=== PATIENT | female | born 1960 | race Caucasian/White ===

== ENCOUNTER 2025-04-10 06:05 | Day surgery (SDC) | payer OTHER, SELFPAY ==
[2025-04-03 08:37] VITALS: BMI 37.9
[2025-04-10] VITALS (15 sets, daily range): BP systolic 56–138; BP diastolic 46–83; PULSE 67–89; RESP 13–25; TEMP 36.1–36.8; O2SAT 92–100; BMI 35.7
--- NOTE | 2025-04-10 | DI.RAD.S_ITS ---
PROCEDURE: XR HIP W PEL IF DONE RT 2V INDICATIONS: RIGHT TOTAL HIP TECHNIQUE: AP pelvis and lateral view of the hip acquired. COMPARISON: Outside Film, CR, XR HIP 2 VIEWS RIGHT, 10/12/2024, 16:01. [facility], CR, XR PELVIS 1-2V, 04/10/2025, 8:52. FINDINGS: Bones: Patient is status post right hip arthroplasty, with hardware components in expected positions. The hip joint appears congruent. The visualized bony structures appear intact. Soft tissues: Overlying postoperative changes are noted. No suspicious soft tissue densities. IMPRESSION: Expected post-operative appearance of a hip arthroplasty. Dictated by: Xu Sanchez M.D. on 04/10/2025 at 10:22 Approved by: Xu Sanchez M.D. on 04/10/2025 at 10:22
--- NOTE | 2025-04-10 06:00 | DI.RAD.S_ITS ---
PROCEDURE: XR PELVIS 1-2V INDICATIONS: right total hip TECHNIQUE: Intra-operative view of the pelvis and hip acquired. COMPARISON: [facility], CR, XR HIP W PEL RT 2V, 04/10/2025, 10:39. [facility], CR, XR PELVIS WITH LATERAL HIP RIGHT, 03/23/2025, 11:55. FINDINGS: Bones: Intraoperative devices prior to placement of arthroplasty prostheses are in expected positions. No fractures or suspicious bony lesions. Soft tissues: Overlying surgical retractors are present, along with other intraoperative changes. IMPRESSION: Normal intraoperative study. Dictated by: Xu Sanchez M.D. on 04/10/2025 at 10:35 Approved by: Xu Sanchez M.D. on 04/10/2025 at 10:36
[2025-04-10] MEDS: VANCOMYCIN 1,000 MG in SODIUM CHLORIDE 0.9% 250 ML 250 MG IV (06:57)
[2025-04-10] MEDS: LACTATED RINGERS 1,000 ML 42 ML IV ×2 (06:57→09:56)
[2025-04-10] MEDS: CELECOXIB 200 MG CAPSULE PO (07:01)
[2025-04-10] MEDS: ACETAMINOPHEN 325 MG TABLET 975 MG PO (07:01)
--- NOTE | 2025-04-10 07:31 | P.OP_ITS ---
Operative Date/Time/Diagnoses Date of procedure: 04/10/25 Time of procedure: 07:31 Pre-op diagnosis: right hip OA Post-op diagnosis: same Procedure & Clinicians Procedure: Right total hip arthroplasty posterior approach Same procedure(s) as scheduled: Yes Indications: The patient has had progressively worsening right hip pain with radiographic changes consistent with arthritis. Non-operative management has failed and the patient has requested total hip replacement. The risks, benefits and alternatives to surgery were discussed with the patient prior to proceeding. Risks discussed included, but were not limited to, failure to relieve pain, leg length discrepancy, dislocation, stiffness, infection, nerve damage, deep venous thrombosis, pulmonary embolism, stroke, coma, heart attack, permanent paralysis and , as well as the potential need for eventual revision of the prosthetic. Surgeon: Brigitte Gonzalez [employer] Workers: Pola Sadler Anesthesia Type: General and Spinal Operative Notes Findings: Right hip OA, adequate bone, adequate stability Closure Type: primary Specimen(s): none sent Prosthetic devices, grafts, tissues, transplants, or devices: Gonzalez and nephew R3 46, neutral poly liner, two 6.5 mm screws, anthology A size 4, 32 by -3 oxinium Applied: none Estimated Blood Loss (mL): 250 Blood products transfused: none Procedure in detail: The patient was seen in the pre-operative area, where the patient identified the right hip as the operative site and this was marked with my initials. The patient received pre-operative antibiotics and was taken to the operating room and placed on the operative table in the left lateral decubitus position after satisfactory anesthesia. A motion and time study teacher out was performed. The right leg was prepared from the ankle to the iliac crest with ChloroPrep in the usual fashion and draped through sterile drapes. The hip was approached through an approximately 24 cm incision centered over the greater trochanter and curving gently posteriorly as it went proximally. This was carried sharply to the fascia brenda, which was divided and retracted with a self retaining retractor. The trochanteric bursa was excised with care being taken to avoid the sciatic nerve, which was identified and protected throughout the case. The short external rotators were incised and the capsulomuscular flap was raised and tagged for later repair. The hip was dislocated, and a femoral neck osteotomy performed approximately 15 mm above the lesser trochanter. Retractors were placed around the femur. The canal was opened with a box cutting osteotome, followed by a T handled reamer and a lateralizing reamer. The chili pepper broach was then used, followed by sequential broaching until there was good stability of the broach in the femur. Retractors were placed to expose the acetabulum. The labrum and central soft tissues were removed. Reaming was performed initially going up in 2 mm increments, then 1 mm increments until good bite was obtained with an odd sized reamer. The cup 1 mm larger than the last reamer was then inserted using the appropriate anteversion guides. It was further stabilized with two screws. A trial neutral liner was placed. The broach was placed in the canal. A trial head and neck were then placed and the hip relocated and checked for leg length and stability. An intraoperative film confirmed the component position and no evidence of fracture. The patient was stable in the position of sleep, of squatting, and could be put through a range of motion with 45 degrees internal rotation without dislocation. At 90 degrees flexion, internal rotation to 70 degrees was possible before dislocation. This was felt to be satisfactory and the appropriate components were opened, and the trials were removed. The acetabular liner was impacted into position. The final stem was then impacted into the prepared femoral canal. A brief Betadine soak was performed while trialing with head options. The hip was meticulously irrigated with normal saline. Finally the femoral head was impacted onto the stem. The acetabulum was cleared of all material and the hip relocated one final time. The capsulomuscular flap was then repaired to the greater trochanter though an awl hole using the tag sutures. The short external rotators were repaired with a nonabsorbable suture. The fascia brenda was closed with Vicryl. The subcutaneous layer was closed with barbed sutures and skin pan. A lisa dressing was applied and the patient was taken to recovery having tolerated the procedure well. A PA was used during the procedure and was essential for intraoperative retraction and safe implantation of the components. Complications: none Post-operative Condition: stable Disposition: Acute Care Plan for aftercare: The patient will be maintained on a standard total hip replacement protocol with weight bearing as tolerated and posterior hip precautions. The patient will receive Aspirin and sequential compression devices for DVT prophylaxis. The patient will be discharged home when safe for the home environment.
--- NOTE | 2025-04-10 07:31 | PM.PREOP ---
Pre-operative Note Interval Note History & Physical reviewed/Exam performed by Physician: Yes Changes to H&P: No
[2025-04-10] MEDS: CEFAZOLIN 2 GM/100 ML PREMIX 100 ML IV ×3 (08:05→23:27)
[2025-04-10] MEDS: TRANEXAMIC ACID 1,000 MG VIAL 1000 MG INJ ×2 (08:10→09:56)
--- NOTE | 2025-04-10 08:30 | SUR.OPER ---
Lateral on padded OR bed. Gel axillary roll. Arms secured on padded armboard with pillow supporting top arm. Padded hip positioner braces x4 - anterior and posterior chest and pelvis. Additional gel pad used anterior pelvis. Gel pad under bottom leg from knee to foot and secured with tape over sheet. Dr. Gonzalez and PA in room at time of positioning to assist and approve final position. All pressure points padded and protected.
[2025-04-10] MEDS: BUPIVACAINE 0.25% W/ EPI 30 ML VIAL 60 ML INJ (08:45)
[2025-04-10] MEDS: BUPIVACAINE LIPOSOME 266 MG/20 ML VIAL INJ (08:46)
[2025-04-10] MEDS: EPINEPHrine 1 MG/ML IRR (08:50)
[2025-04-10] MEDS: OXYCODONE IR 5 MG TABLET PO ×3 (11:01→19:14)
[2025-04-10] MEDS: hydrOXYzine 50 MG/ML INJ IM (11:18)
[2025-04-10] MEDS: LACTATED RINGERS 1,000 ML 1000 ML IV (12:50)
--- NOTE | 2025-04-10 12:51 | PC.NURSE ---
Low BP noted, patient resting comfortably in bed. Denies lightheadedness but is sleepy. Awakens appropriately. Dr. Gonzalez notified and 1L LR bolus ordered. Continue to monitor.
[2025-04-10] MEDS: ACETAMINOPHEN 325 MG TABLET 650 MG PO ×3 (14:20→23:37)
[2025-04-10] MEDS: LACTATED RINGERS 1,000 ML 100 ML IV (14:21)
--- NOTE | 2025-04-10 16:05 | PT.IIE ---
Current Diagnoses Unilateral primary osteoarthritis, right hip (04/10/25) Surgery Performed Operation Date: 04/10/25 07:45 Actual Procedures p Total Hip Arthroplasty(Right) - Brigitte Gonzalez MD Surgical History (Last Updated 04/03/25 @ 09:12 by Blanka López, RN) History of delivery (1980) History of surgery (~2005) Medical History (Last Updated 04/03/25 @ 09:12 by Blanka López RN) Fatty liver Heart murmur Hepatitis C (~2004) HTN (hypertension) Hypothyroidism Osteoarthritis Pre-diabetes Physical Therapy Inpatient Evaluation/Re-Eval M1 PT/OT-IP Prior Functional Status Start: 04/10/25 18:00 Freq: NEEDED Status: Active Protocol: Document 04/10/25 16:05 AB (Rec: 04/10/25 18:10 AB [id number]) Medical Review Prior Functional Status Medical History Yes Reviewed Communication able to make needs known Mobility and Gait pt stated that she was indpeendent with all mobilities and ambulation without AD but occasionally uses a SPC depending on hip pain Social History Household Members none Living Arrangements House Number of Floors ( One Floor Floors) Number of Stairs To 4 steps without rails to enter the house Enter/Railing? Home Environment Standard Height Toilet,Tub/Shower Home Equipment Front Wheel Walker,Straight Cane,Raised Toilet Seat w/ Armrests,Grab Bars In Shower Additional Social pt's significant other can stay and assist pt if needed History Comment ; also has her son and sister available to assist her M2 PT-IP Current Condition Start: 04/10/25 18:00 Freq: NEEDED Status: Active Protocol: Document 04/10/25 16:05 AB (Rec: 04/10/25 18:10 AB [id number]) Physical Therapy Current Condition Current Condition Evaluation Date 04/10/25 Treatment Diagnosis s/p R PEDRO LUIS posterior; difficulty in walking Onset Date 04/10/25 M3 PT-IP Subjective Start: 04/10/25 18:00 Freq: NEEDED Status: Active Protocol: Document 04/10/25 16:05 AB (Rec: 04/10/25 18:10 AB [id number]) Therapy Pain Assessment Pain Present Pain Present Denied Pain M4 PT-IP Mobility and Gait Start: 04/10/25 18:00 Freq: NEEDED Status: Active Protocol: Document 04/10/25 16:05 AB (Rec: 04/10/25 18:10 AB [id number]) PT-Bed Mobility Assessment Supine to Sit Supine to Sit Moderate Assistance,1 Person Assistance PT-Transfer Assessment Sit to and From Stand Sit to and from Minimal Assistance,Moderate Assistance,1 Person Stand Assistance,Use of Upper Extremities Equipment Transfer Assistive Gait Belt,Front Wheeled Walker Device Orthotic/Prosthetic No Devices or Brace: Transfers Transfer Destination Bedside Commode Transfer Technique ambulated Transfer Ability Level of Assist Minimal Assistance,Moderate Assistance,1 Person Assistance,Use of Upper Extremities Comments Mobility Comments pt in bed and agreeable to do PT. obtained PLOF and home set up. post-op folder provided to pt. Pt educated on R hip posterior precautions. BP supine: 113/68. O2 sat: 94% OK: 90 completed supine to sit mod A and max cues. needed assistance to move RLE to EOB. able to sit on EOB SBA. sitting BP: 138/76. sit to stand mod A and cues and ambulated in room ~ 15ft using FWW min to mod A and cues. cued for safety and R quads activation. pt sat on bedside commode. sit to stand from bedside commode min A and cues for hip precautions and was able to step transfer to chair using FWW min A and cues. positioned pt on the chair. call light and table placed within reach. set up caregiver training at 9 am tomorrow. Gait Assessment Gait Gait Assistance Minimum Assistance,Moderate Assistance Required: Distance (Feet) 15 Able to Maintain Yes Weight Bearing Status During Gait Assistive Devices Assistive Device Gait Belt,Front Wheeled Walker Orthotic/Prosthetic No Devices or Brace: Gait Deviations General Gait Pattern Decreased Stride Length,Decreased Feet Clearance Factors Limiting Gait Function Factors Limiting Decreased Activity Tolerance,Decreased Sensation, Gait Function Decreased Strength,Limited Range of Motion,Poor Balance ,Poor Safety Awareness PT-Balance Assessment Sitting Balance and Reactions Static Sitting Normal Balance Ability Dynamic Sitting Good Balance Ability Standing Balance and Reactions Static Standing Fair Balance Ability Dynamic Standing Fair Balance Ability Device Used FWW M5 PT-IP Objective Assessments Start: 04/10/25 18:00 Freq: NEEDED Status: Active Protocol: Document 04/10/25 16:05 AB (Rec: 04/10/25 18:10 AB [id number]) Orientation Orientation/Cognition Level of Alertness Alert Orientation Name,Place,Situation Language Function No Deficits Noted Ability Safety Awareness Decreased Safety Awareness Memory Description Short Term Impaired Strength Lower Extremity Strength Assessment Right Impaired Hip 3-/5 Knee 4-/5 Coordination Assessment Gross Coordination Gross Coordination WNL Sensation Assessment Sensation Sensation Numbness Description Comments Sensation Comments numbness of buttocks Muscle Tone Muscle Tone WNL Yes M6 PT-IP Treatment Start: 04/10/25 18:00 Freq: NEEDED Status: Active Protocol: Document 04/10/25 16:05 AB (Rec: 04/10/25 18:10 [id number]) Physical Therapy Treatment Exercises Exercises Heel Slides Education Education Provided Precautions,Weight Bearing Status,Post-Op Packet,Safety M7 PT-IP Assessment and Plan Start: 04/10/25 18:00 Freq: NEEDED Status: Active Protocol: Document 04/10/25 16:05 AB (Rec: 04/10/25 18:10 AB [id number]) PT Summary Assessment and Plan Potential Rehabilitation Fair Potential Status of Condition Evolving at Evaluation Summary Impairments Pain,ROM,Strength,Balance,Coordination,Sensation,Tone, Cognition,Bed Mobility,Transfers,Gait,Activity Tolerance Assessment Summary pt is a 64 y/o F s/p R PEDRO LUIS posterior approach POD 0. pt has R hip posterior precautions and is WBAT. pt requiring mod A for supine to sit, min to mod A for transfers and ambulation using FWW. Caregiver training set up for tomorrow at 9 am. pt plans to go home and has outpt PT set up. will continue to assess progress. Goals Bed Mobility Goal Independent Transfer Goal Independent,Standby Assistance,Front Wheeled Walker Gait Goal Front Wheel Walker Gait Distance 200 Other Goals up/down 4 steps usign SPC + [employer] CGA Days to Meet Goals 5 Frequency of Treatment Frequency Of Twice a Day Treatment Treatment Plan Physical Therapy Bed Mobility Training,Transfer Training,Gait Training, Treatment Plan Therapeutic Exercise,Balance Retraining,Post Op Education,Discharge Planning,Hot or Cold Pack, Neuromuscular Re-ed,Coordination Retraining,Manual Therapy Precautions Posterior Hip No Hip Flexion > 90 degrees,No Hip Internal Rotation,No Precautions Hip Adduction Weight Bearing Status Weight Bearing Weight Bear as Tolerated Status Allowed Weight RLE WBAT Bearing Amount ( enter % or #) (%) Recommendations To Nursing Amount of Assist 1 Person Assist Needed Discharge Recommendations PT Discharge Home with Assistance,Outpatient PT Recommendations Transportation Needs Private Vehicle,Wheelchair/Cabulance at Discharge - PT assist 1
[2025-04-10] MEDS: ASPIRIN EC 81 MG TABLET PO (20:14)
[2025-04-10] MEDS: DOCUSATE 100 MG CAPSULE PO (20:14)
[2025-04-10] MEDS: OXYCODONE IR 10 MG TABLET PO (23:24)
[2025-04-11] MEDS: OXYCODONE IR 10 MG TABLET PO ×2 (04:33→08:26)
[2025-04-11 05:53] LABS: Hematocrit 36.7 % (36-46); Hemoglobin 12.8 g/dL (12.0-16.0)
[2025-04-11] MEDS: LEVOTHYROXINE 112 MCG TABLET PO (05:56)
[2025-04-11] MEDS: ACETAMINOPHEN 325 MG TABLET 650 MG PO (05:56)
--- NOTE | 2025-04-11 07:59 | P.DS_ITS ---
History of Present Illness History of Present Illness Date Patient Seen: 04/11/25 Time Patient Seen: 07:45 Chief complaint: OPB Narrative: The patient has had progressively worsening right hip pain with radiographic changes consistent with arthritis. Non-operative management has failed and the patient has requested total hip replacement. The risks, benefits and alternatives to surgery were discussed with the patient prior to proceeding. Risks discussed included, but were not limited to, failure to relieve pain, leg length discrepancy, dislocation, stiffness, infection, nerve damage, deep venous thrombosis, pulmonary embolism, stroke, coma, heart attack, permanent paralysis and , as well as the potential need for eventual revision of the prosthetic. Discharge Providers Provider Discharge Date: 04/11/25 Consults: 04/10/25 06:00 Consult to Anesthesiology Routine Comment: Consulting Provider: Anesthesiologist Reason for consultation: Regional block for post operative pain control Has provider been notified: No 04/10/25 12:44 Consult to Discharge Planning Routine Comment: Consult to Occupational Therapy Evaluate & Treat Comment: Physician Instructions: Evaluate and treat Consult to Physical Therapy Evaluate & Treat Comment: Physician Instructions: post op PEDRO LUIS protocol Discharge provider: Poal Sadler PA-C Summary Hospital Course Discharge Diagnosis: right hip OA Hospital Course: Procedure: Right total hip arthroplasty posterior approach Same procedure(s) as scheduled: Yes Surgeon: Brigitte Gonzalez Sprinkler Helper: Pola Sadler Anesthesia Type: General and Spinal Operative Notes Findings: Right hip OA, adequate bone, adequate stability Closure Type: primary Specimen(s): none sent Prosthetic devices, grafts, tissues, transplants, or devices: Gonzalez and nephew R3 46, neutral poly liner, two 6.5 mm screws, anthology A size 4, 32 by -3 oxinium Applied: none Estimated Blood Loss (mL): 250 Status at Discharge Cognitive/behavioral status at discharge: oriented Functional status at discharge: uses cane/walker Overall status at discharge: patient is back to baseline Time Spent with Patient Time spent: Less than 30 minutes Exam Vital Signs (past 8 hours): Oxygen Delivery Method Room Air Oxygen Flow Rate 0 Narrative Exam Narrative: Patient's pain is controlled with oral medication. ?Pain is localized to surgical site. ?Patient declines any new numbness or tingling at the surgical extremity. ?Patient denies any shortness of breath, dizziness, light-headedness, nausea, vomiting, fever or chills. 5/5 strength in hip flexors, quadriceps, hamstrings, DF, PF, EHL bilaterally. Sensation to light touch intact throughout BLE. Calves soft, compressible, nontender. Dressing placed intraoperatively CDI. Resp Effort & Inspection: normal respiratory effort and able to speak in complete sentences Objective Labs 04/11/25 05:21 Labs: Laboratory Results - last 24 hr 04/11/25 05:21 Hgb 12.8 Hct 36.7 PFSH Medical History (Updated 04/03/25 @ 09:12 by Blanka López RN) Osteoarthritis Pre-diabetes Hypothyroidism Fatty liver Hepatitis C (~2004) Heart murmur HTN (hypertension) Surgical History (Updated 04/03/25 @ 09:12 by Blanka López RN) History of surgery (~2005) History of delivery (1980) Social History household members: none Smoking Status: Former smoker alcohol intake: former Discharge Assessment & Plan Assessment and Plan Assessment: Status post Right total hip arthroplasty posterior approach Plan of Treatment: Discharge to home. ? Posterior Hip Pre-cautions. Ambulate and weight bear as tolerated with assistive devices. ? Aspirin 81 mg twice a day for 6 weeks for DVT prevention. ? Baseline pain relief with acetaminophen 500mg every 4 hours as needed and ibuprofen 400 mg every 4 hours as needed. ?Patient has been prescribed oxycodone 5 mg every 4 ?hours as needed for breakthrough pain. ? Initiate physical therapy in the next 5-10 days. ? Keep dressing clean and dry. Keep dressing on until first office visit. If dressing becomes dirty or disrupted, replace with appropriate sized dressing. Follow up in clinic in 2 weeks for wound check. Contact clinic if there are any questions or concerns. Discharge Plan Discharge Plan Patient Disposition: Home Discharge orders & Medications Discharge Orders: Discharge (Order); Ordered 04/11/25 Ordered By: oPla Sadler Prescriptions: New aspirin 81 mg Tablet,Delayed Release (Dr/Ec) 81 mg PO BID Qty: 90 0RF Continued gabapentin 300 mg capsule 300 mg PO DAILY levothyroxine 112 mcg tablet 112 mcg PO QAM olmesartan 20 mg tablet 20 mg PO DAILY Diet/Activity/Treatments Diet: Diet as Tolerated Activity: Ambulate multiple times a day. Use a cane or walker as needed. Full weight on leg. Cold/Heat Therapy: Use ice multiple times a day. Skin/Wound/Dressing Care Skin care: Leave dressing on. Okay to shower Report to your healthcare provider any signs of infection, such as:: chills, fever, night sweats, unusual drainage and unusual redness Dressing: May shower. Leave dressing in place until follow up in office. No bathing or otherwise soaking incision. Call the office if the dressing becomes saturated inside. Visit Report/Discharge Packet Instructions: DI for Hip Replacement Stand Alone Forms: Patient Portal/API, Surgery Discharge Print Language: Frisian Discharge Data Attending Provider: Brigitte Gonzalez
[2025-04-11] MEDS: ASPIRIN EC 81 MG TABLET PO (08:27)
[2025-04-11] MEDS: DOCUSATE 100 MG CAPSULE PO (08:27)
[2025-04-11] MEDS: GABAPENTIN 300 MG CAPSULE PO (08:27)
--- NOTE | 2025-04-11 09:00 | PT.IPTN ---
Current Diagnoses Unilateral primary osteoarthritis, right hip (04/10/25) Surgery Performed Operation Date: 04/10/25 07:45 Actual Procedures p Total Hip Arthroplasty(Right) - Brigitte Gonzalez MD Physical Therapy Treatment Note M2 PT-IP Current Condition Start: 04/10/25 18:00 Freq: NEEDED Status: Discharge Protocol: Document 04/10/25 16:05 AB (Rec: 04/10/25 18:10 AB [id number]) Physical Therapy Current Condition Current Condition Evaluation Date 04/10/25 Treatment Diagnosis s/p R PEDRO LUIS posterior; difficulty in walking Onset Date 04/10/25 M3 PT-IP Subjective Start: 04/10/25 18:00 Freq: NEEDED Status: Discharge Protocol: Document 04/11/25 09:00 AB (Rec: 04/11/25 13:36 AB [id number]) Therapy Pain Assessment Pain When Pain Assessed At Rest Pain Present Pain Present Pain Reported Location right hip Intensity 6 Scale Used Numeric (0 - 10) Pain Management Apply Cold,Distraction,Modification of Treatment,Re- Techniques positioning,Timing of Activity with Medications M4 PT-IP Mobility and Gait Start: 04/10/25 18:00 Freq: NEEDED Status: Discharge Protocol: Document 04/11/25 09:00 AB (Rec: 04/11/25 13:36 AB [id number]) PT-Bed Mobility Assessment Supine to Sit Supine to Sit Maximum Assistance,1 Person Assistance Sit to Supine Sit to Supine Maximum Assistance,1 Person Assistance PT-Transfer Assessment Sit to and From Stand Sit to and from Minimal Assistance,Moderate Assistance,1 Person Stand Assistance,Use of Upper Extremities Equipment Transfer Assistive Gait Belt,Front Wheeled Walker Device Orthotic/Prosthetic No Devices or Brace: Transfers Transfer Destination Bed,Chair Transfer Technique ambulated Transfer Ability Level of Assist Contact Guard Assistance,1 Person Assistance,Use of Upper Extremities Comments Mobility Comments pt sitting on the chair and significant other in room. reviewed hip precautions and pt recalled 2/3. educated pt and spouse regarding posterior hip precautions. caregiver training conducted. educated SO on how to use safety belt and how to assist pt. SO was able to put safety belt on pt. sit to stand min to mod A and cues for techniques, pt ambulated in room ~ 25 ft using FWW CGA. sat on EOB. completed sit<>supine max A with SO assisting pt. sit<>stand from EOB x 3 and cues for techniques mod A. stair climbing training: educated pt and SO on how to do stairs using SPC + EX CHEF. pt completed up/down platform step x 3 sets using SPC and SO providing EX CHEF max A and cues. pt ambulated back to the chair. positioned pt on the chair. call light and table placed within reach. Gait Assessment Gait Gait Assistance Contact Guard Assist Required: Distance (Feet) 35 Able to Maintain Yes Weight Bearing Status During Gait Assistive Devices Assistive Device Gait Belt,Front Wheeled Walker Orthotic/Prosthetic No Devices or Brace: Gait Deviations General Gait Pattern Antalgic,Decreased Stride Length,Decreased Feet Clearance,Step-to Gait Factors Limiting Gait Function Factors Limiting Decreased Activity Tolerance,Decreased Strength,Limited Gait Function Range of Motion,Pain,Poor Balance,Poor Safety Awareness M5 PT-IP Objective Assessments Start: 04/10/25 18:00 Freq: NEEDED Status: Discharge Protocol: Document 04/10/25 16:05 AB (Rec: 04/10/25 18:10 AB [id number]) Orientation Orientation/Cognition Level of Alertness Alert Orientation Name,Place,Situation Language Function No Deficits Noted Ability Safety Awareness Decreased Safety Awareness Memory Description Short Term Impaired Strength Lower Extremity Strength Assessment Right Impaired Hip 3-/5 Knee 4-/5 Coordination Assessment Gross Coordination Gross Coordination WNL Sensation Assessment Sensation Sensation Numbness Description Comments Sensation Comments numbness of buttocks Muscle Tone Muscle Tone WNL Yes M6 PT-IP Treatment Start: 04/10/25 18:00 Freq: NEEDED Status: Discharge Protocol: Document 04/11/25 09:00 AB (Rec: 04/11/25 13:36 [id number]) Physical Therapy Treatment Education Education Provided Precautions,Safety M7 PT-IP Assessment and Plan Start: 04/10/25 18:00 Freq: NEEDED Status: Discharge Protocol: Document 04/11/25 09:00 AB (Rec: 04/11/25 13:36 AB [id number]) PT Summary Assessment and Plan Potential Rehabilitation Good Potential Summary Impairments Pain,ROM,Strength,Balance,Coordination,Sensation,Tone, Cognition,Bed Mobility,Transfers,Gait,Activity Tolerance Progress Towards Slow Progress due to Pain Goals Assessment Summary pt c/o increase pain today but able to mobilize with assistance. caregiver training conducted and pt's significant other will assist her at home. pt has outpt PT set up. Goals Bed Mobility Goal Independent Transfer Goal Independent,Standby Assistance,Front Wheeled Walker Gait Goal Front Wheel Walker Gait Distance 200 Other Goals up/down 4 steps usign SPC + EX CHEF CGA Days to Meet Goals 5 Frequency of Treatment Frequency Of Twice a Day Treatment Treatment Plan Physical Therapy Bed Mobility Training,Transfer Training,Gait Training, Treatment Plan Therapeutic Exercise,Balance Retraining,Post Op Education,Discharge Planning,Hot or Cold Pack, Neuromuscular Re-ed,Coordination Retraining,Manual Therapy Precautions Posterior Hip No Hip Flexion > 90 degrees,No Hip Internal Rotation,No Precautions Hip Adduction Weight Bearing Status Weight Bearing Weight Bear as Tolerated Status Allowed Weight RLE WBAT Bearing Amount ( enter % or #) (%) Recommendations To Nursing Amount of Assist 1 Person Assist Needed Discharge Recommendations PT Discharge Home with Assistance,Outpatient PT Recommendations Transportation Needs Private Vehicle,Wheelchair/Cabulance at Discharge - PT assist 1
--- NOTE | 2025-04-11 10:38 | OT.IP.EVAL ---
Current Diagnoses Unilateral primary osteoarthritis, right hip (04/10/25) Surgery Performed Operation Date: 04/10/25 07:45 Actual Procedures p Total Hip Arthroplasty(Right) - Brigitte Gonzalez MD Past Medical History (Last Updated 04/03/25 @ 09:12 by Blanka López, RN) Fatty liver Heart murmur Hepatitis C (~2004) HTN (hypertension) Hypothyroidism Osteoarthritis Pre-diabetes Surgical History (Last Updated 04/03/25 @ 09:12 by Blanka López RN) History of delivery (1980) History of surgery (~2005) Occupational Therapy Inpatient Evaluation/Re-Eval M1 PT/OT-IP Prior Functional Status Start: 04/10/25 18:00 Freq: NEEDED Status: Discharge Protocol: Document 04/10/25 16:05 AB (Rec: 04/10/25 18:10 AB [id number]) Medical Review Prior Functional Status Medical History Yes Reviewed Communication able to make needs known Mobility and Gait pt stated that she was independent with all mobilities and ambulation without AD but occasionally uses a SPC depending on hip pain Social History Household Members none Living Arrangements House Number of Floors ( One Floor Floors) Number of Stairs To 4 steps without rails to enter the house Enter/Railing? Home Environment Standard Height Toilet,Tub/Shower Home Equipment Front Wheel Walker,Straight Cane,Raised Toilet Seat w/ Armrests,Grab Bars In Shower Additional Social pt's significant other can stay and assist pt if needed History Comment ; also has her son and sister available to assist her M1 PT/OT-IP Prior Functional Status Start: 04/11/25 11:56 Freq: NEEDED Status: Active Protocol: Document 04/11/25 11:56 [facility] (Rec: 04/11/25 12:07 [facility] Desktop) Medical Review Prior Functional Status Medical History Yes Reviewed Communication able to make needs known Mobility and Gait pt stated that she was independent with all mobilities and ambulation without AD but occasionally uses a SPC depending on hip pain Activities of Daily Pt needing assist with LB dressing from her . Living and IADL's Social History Household Members none Living Arrangements House Number of Floors ( One Floor Floors) Number of Stairs To 4 steps with no rails. Enter/Railing? Home Equipment Four Wheel Walker,Straight Cane,Raised Toilet Seat w/ Armrests,Long Handled Shoe Horn,Specifications Writer,Sock Aid,Grab Bars In Shower M2 OT-IP Current Condition Start: 04/11/25 11:56 Freq: Status: Active Protocol: Document 04/11/25 11:56 [facility] (Rec: 04/11/25 12:07 [facility] Desktop) Occupational Therapy Current Condition Current Condition Evaluation Date 04/11/25 Treatment Diagnosis S/P R PEDRO LUIS posterior Diagnosis Onset Date 04/10/25 Post Operative Precautions Posterior Hip No Hip Flexion > 90 degrees,No Hip Internal Rotation,No Precautions Hip Adduction Other Precautions able to clarify with DR. Gonzalez on her posterior precautions states not bend hip more than [address] Gonzalez states not bend more than 90 degrees and 70 degrees if rotating hip inwards and leg outwards. Weight Bearing Status Weight Bearing Weight Bear as Tolerated Status M3 OT- IP Subjective and Pain Start: 04/11/25 11:56 Freq: Status: Active Protocol: Document 04/11/25 11:56 [facility] (Rec: 04/11/25 12:07 [facility] Desktop) OT- Subjective Occupational Therapy Visit Type Type Initial Evaluation Visit Start Time 10:13 Visit Stop Time 10:38 Occupational Therapy Visit Comments Patient Comments Pt agreed to get dressed and present for training. Patient/Caregiver To go home. Goals OT Pain Assessment Pain When Pain Assessed During Mobility Pain Present Pain Present Pain Reported Location right hip Intensity 6 Scale Used Numeric (0 - 10) M4 OT- IP ADL's Start: 04/11/25 11:56 Freq: Status: Active Protocol: Document 04/11/25 11:56 [facility] (Rec: 04/11/25 12:07 [facility] Desktop) OT LOC-Ohuy-Xxargpt General Evaluation Self-Feeding Ability Independent OT ADL-Grooming Comments OT Grooming Comments Not observed. OT ADL-Oral Care Comments Oral Care Comments Not observed. OT ADL-Dressing General Eval Upper Body Dressing Standby Assistance Ability Lower Body Dressing Maximum Assistance Ability Areas Needing Socks,Shoes Assistance Comments OT Dressing Comments Able to practice use of it investment/portfolio manager and sock aid. Educated to dress the RLE first and take out last. OT ADL-Toileting Comments OT Toileting Suggested best to stand to wipe and have a BSC. Use of Comments wipe and pull ups. Also to have her assist as needed. OT ADL-Bathing Comments OT Bathing Comments Pt will benefit from a tub bench. Spoke of care of dressing for showering needs. M5 OT- IP IADL's Start: 04/11/25 11:56 Freq: Status: Active Protocol: Document 04/11/25 11:56 [facility] (Rec: 04/11/25 12:07 [facility] Desktop) OT-Instrumental Activities of Daily Living Home Safety Awareness Awareness of Need Good Awareness for Assistance at Home Ability to Problem Able to Problem Solve Solve Emergency Situations Medication Management Medication to assist as needed. Management Comments Meal Preparation Meal Preparation Caregiver Provides Assist Agricultural Appraiser Agricultural Appraiser Caregiver Provides Assist M6 OT- IP Functional Cognition Start: 04/11/25 11:56 Freq: Status: Active Protocol: Document 04/11/25 11:56 [facility] (Rec: 04/11/25 12:07 [facility] Desktop) Cognitive Factors Limiting Selfcare Function Cognitive Ability Level of Alertness Alert Patient Orientation Name,Age,Birthday,Month,Date,Year,Day of Week,Place, Situation Attention Span Capable of Focused Attention,Capable of Sustained Ability Attention Ability to Follow Able to Follow One Step Commands Commands Cognitive Comments Cognitive Assessment Pt able to follow her precautions for ADL and mobility Comments needs with vc for reminders. Pt's S.O able to safely assist pt for all ADL and mobility needs. M7 OT- IP Mobility and Balance Start: 04/11/25 11:56 Freq: Status: Active Protocol: Document 04/11/25 11:56 [facility] (Rec: 04/11/25 12:07 [facility] Desktop) OT-Transfer Assessment Sit to and From Stand Sit to and from Contact Guard Assistance Stand Comments Mobility Comments CGA to stand to the FWW. Able to go over pillow placement for her hip precautions. OT- Balance Assessment Sitting Balance and Reactions Static Sitting Good Balance Ability Dynamic Sitting Good Balance Ability Standing Balance and Reactions Static Standing Fair Balance Ability M8 OT- IP Objective Assessments Start: 04/11/25 11:56 Freq: Status: Active Protocol: Document 04/11/25 11:56 [facility] (Rec: 04/11/25 12:07 [facility] Desktop) OT Gross Range of Motion Upper Extremity Range of Motion Assessment Within Functional Limits OT Strength Comments Strength Comments WFL for needs. M9 OT- IP Assessment and Plan Start: 04/11/25 11:56 Freq: Status: Active Protocol: Document 04/11/25 11:56 [facility] (Rec: 04/11/25 12:07 [facility] Desktop) OT Summary Assessment and Plan Potential Rehabilitation Excellent Potential Analytic Complexity Low at Evaluation Summary OT Impairments Pain,Balance,Functional Mobility,Dressing,Toileting, Bathing,Toilet Transfers,Shower Transfers,Activity Tolerance Progress Towards Progressing Toward Goals Goals Assessment Summary Pt low complexity and main barriers are pain, steps and needing reminders to her hip precautions. Pt will benefit from 24/7 assist at home and outpt PT. Goals Self-Feeding Goal Independent Grooming Goal Independent Dressing Goal Minimal Assistance Toileting Goal Standby Assistance Bathing Goal Minimal Assistance Toilet Transfer Goal Independent Shower Transfer Goal Contact Guard Assistance Days to Meet Goals 5 Frequency of Treatment Other frequency 5x/week Treatment Plan OT Treatment Plan ADL Training,Functional Mobility,Patient/Family Education,Discharge Planning Discharge Recommendations OT Discharge Home with 24/7 Assist Available,Outpatient PT Recommendations Home Equipment Needs BSC, tub bench, long handled sponge Transportation Needs Private Vehicle at Discharge
[2025-04-11] MEDS: IBUPROFEN 400 MG TABLET PO (10:47)
--- NOTE | 2025-04-11 11:33 | PC.NURSE ---
Patient is A&OX4. She is able to get up to chair and to Bathroom using FWW x1 assist. She reports pain elevated at 6-7/10 but controlled well with po PRN oxycodone 10mg this a.m. she is cleared by PT and OT and completes caregiver training with PT at 0900. MD Gonzalez at bedside this a.m. evaluating patient and she is cleared medically for discharge home today with spouse. Spouse and son at bedside supportive and helpful. MARIA LUISA dressing to R hip C/D/I without drainage. BP med held this a.m. as BP low prior day and soft BP's this a.m. Continuous monitoring. At 11 a.m. she reviews discharge paper work, IV dc'd and she is escorted to private care with her son today. She acknowledges activity limitations, MARIA LUISA dressing &site care, meds as well as follow up post op appointment and s/sx of infection. She is escorted via w/ch by RN with all belongs to private vehicle with her and son.
--- NOTE | 2025-04-11 13:27 | CM.DANOTE ---
B DCP Assessment Note pt is a 64yo F POD1 right total hip with Dr. Gonzalez PCP Miracle Oliveira Payer Ren and self pay COMMERCIAL LITIGATION ATTORNEY reviewed EMR per chart review PT/OT rec home with assistance and OP therapies. per chart review, pt lives in [place] with spouse and local son/sister as well. has a FWW/cane/grab bars in home. cleared to dc for home. COMMERCIAL LITIGATION ATTORNEY attempted to meet with pt in room, already left with spouse and son. per RN, no obvious CM needs P: dc home with OP f/u and family support. CM team will continue to follow as needed GINNY Garcia Discharge Planning/Care Management CM Discharge Assessment Start: 04/10/25 06:35 Freq: Status: Discharge Protocol: Document 04/11/25 13:26 SL (Rec: 04/11/25 13:27 [id number]) Discharge Planning Assessment Assigned Discharge GINNY Wright Arc Cutter Plasma Arc DPOA/Assigned tai, spouse Designee Name Contact Information [phone] Advance Directives? No Advance Directives No on File History Provided By Patient Prior Living House Arrangements Household Members spouse,none Willing to Return to No Facility? DME Already Rented / FWW / Walker,Cane Owned Discharge Plan Home Referrals Initiated None needed Review Status In Process Please Provide Date 04/11/25 Initial DC Assessment Was Performed Next Review Type Continued Stay Review Pre-Anesthesia Assessment Start: 04/03/25 08:37 Freq: Status: Discharge Protocol: Document 04/03/25 08:37 CAB (Rec: 04/03/25 09:46 CAB [id number]) Pre-Anesthesia Assessment PAC Comment Phone assess 04/03/25 Preferred Name Cindy Patient Information Phone Assessment Reviewed Via Assessment Completed Patient With Primary Care Miracle Oliveira Provider Seen Specialist in Yes Last 12 Months Specialist Seen Orthopedist Primary Language Albanian Shopper Required No Height 167.64 cm Weight 106.594 kg Body Mass Index (BMI 37.9 ) Hearing Ability Normal Visual Assist Magnifying Glass Dentition Type Teeth, Natural Present,Teeth, Broken,Teeth, Missing Barriers to Learning None Hx Anesthesia No Reactions Hx Family Anesthesia No Reaction Hx Malignant No Hyperthermia Hx Blood Yes: Transfusions Hx Blood Transfusion Yes: Pt thinks this is where Hep C Reaction Anesthesia Review No Requested Women'S Lacrosse Coach No alcohol intake former Alcohol Intake Sober 19 years Frequency Other: Smoking Status Former smoker how long ago did 19 years ago patient quit smoking Substance Use Type [ does not use #R] Pain Present Pain Reported Musculoskeletal Abnormal Gait,Difficulty Walking,Joint Pain Symptoms History of Falling ( No Recent or History of ) Patient is No completely paralyzed or completely immobile Prosthesis or Cane Orthotic Device Mental Status Oriented to own ability Is patient on oxygen No ? 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 Cardiac Clearance No Received Dysphagia No Gastrointestinal None Symptoms Chronic UTI No Urinary Catheter No Present Hx Urinary Self No Catheterization Diabetes No: Pre-diabetes Patient No Lactating No Hx Drug Resistant No Organism Presence of External No or Internal Medical Devices Marital Status Single Lives With none Current Living House Arrangements Number of Floors ( One Floor Floors) Number of Stairs To 6 steps Enter/Railing? Support System Significant Other Does the Patient Yes Have Assistance After Surgery Patient Discharge Return Home Plan Description Comment Pt advised overnight length of stay per surgeon Feels Safe in Yes Current Environment Been Physically Hurt No or Threatened By a Person in Current Environment Are you currently No considering suicide? Do you have a plan No Plan to hurt yourself or others? Do You Have Any No Spiritual Beliefs That May Affect Your HC Choices? Do You Have Any No Cultural Practices That May Affect Your HC Choices? Comment Hindu Who Can We Speak to Family, friends About Patient's Care Identifying Code for Declines to issue Release of Patient Information Health Care Proxy/ Vinnie Cespedes (Son) Next of Kin Health Care Proxy [phone] Phone Number Emergency Contact Tai Sumner (S.O.) Name Emergency Contact [phone] Phone Number Advance Directives? No Advance Directives No on File Power of Heat Sealing Machine Operator No PAC Instructions Assistance for 24 hours post-op,Do not shave/clip surgical site,Durable medical equipment,Medications to take/avoid,Nasal antibiotic,No ETOH/petroleum product on skin DOS,NPO,Post-op transportation,Pre-surgical wash,Sturdy shoes/comfortable clothes,Do not bring valuables and remove jewelry
== END 2025-04-11 11:10 | disposition home or self-care (01) ==
LOC: OR 06:08 → AC 06:09
PROVIDERS: Referring Provider Orthopaedic Surgery; Visit Provider Orthopaedic Surgery
PROC: 0SR90JZ Replacement of Right Hip Joint with Synthetic Substitute, Open Approach (ICD-10-PCS; CPT 27130; principal; 2025-04-10 07:45)
DX: M16.11 Unilateral primary osteoarthritis, right hip (principal); E66.9 Obesity, unspecified; Z87.891 Personal history of nicotine dependence
CPT/HCPCS: 27130; 36415; 72170; 73502; 85014; 85018; 97162; 97165; 97530; 97535; C1776; C1713; J0165; J0666; J0690; J1100; J2405; J2704; J3010; J3410